=== PATIENT | female | born 1940 | race Caucasian/White ===

== ENCOUNTER 2019-02-01 12:04 | Day surgery (SDC) | payer MEDICARE, SELFPAY ==
[2019-01-24 12:59] VITALS: BMI 21.1
[2019-02-01 12:49] VITALS: BP 128/67; PULSE 67; RESP 16; TEMP 36.3; O2SAT 95; BMI 21.1
[2019-02-01] MEDS: LACTATED RINGERS 1,000 ML 42 ML IV (12:56)
[2019-02-01] MEDS: CEFAZOLIN 1 GM VIAL IV (13:14)
[2019-02-01] MEDS: LIDOCAINE 2% INJ SDV 5 ML INJ (13:25)
--- NOTE | 2019-02-01 13:32 | SUR.OPER ---
Supine on padded OR bed, head on pillow, arms secured on padded arm boards at <90 degrees abduction, legs uncrossed, safety belt at thigh, tape over blanket over lower legs.
[2019-02-01] MEDS: BUPIVACAINE 0.5% (PF) VIAL 30 ML INJ (14:07)
[2019-02-01 14:20] VITALS: BP 131/75; PULSE 87; RESP 16; TEMP 36.1; O2SAT 96
--- NOTE | 2019-02-01 14:22 | PM.OP.1 ---
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 Post-op diagnosis: same Procedure & Clinicians Procedure: 1st MTPJ implant arthroplasty with silicone implant, left foot Same procedure as scheduled: Yes Indications: Painful arthritis, 1st MTPJ, left foot Surgeon: Norbert Aguilera Anesthesia Type: Sedation and Local Operative Notes Closure Type: primary Specimen(s): none sent Prosthetic devices, grafts, tissues, transplants, or devices: Futura silicone hinged implant with titanium grommets x2 Estimated Blood Loss (mL): 5 Blood products transfused: none Procedure in detail: Indications: This patient has been fighting painful end- stage arthritis in her left great toe joint for sometime now. She has failed to improve with conservative treatment and desires at this point to proceed with surgical intervention. Joint fusion and joint replacement were discussed and she wanted to proceed with silicone joint implant arthroplasty. No guarantees were made or implied regarding surgical outcome. Preop diagnosis: Painful arthritis, 1st MTP joint, left foot Postop diagnosis: same Operation: The patient was taken from the day surgery area back to the OR via gurney, after having been given IV antibiotic prophylaxis. She was placed on the OR table in the supine position, sedation was administered by the anesthesiologist, followed by local anesthetic blockade using 50 50 lidocaine 10 cc total as a field block. The foot was then prepped and draped in usual sterile fashion from toes to knee. A calf tourniquet had been placed, however, it was not elevated nor utilized throughout the case. Procedure: 1St MTP joint silicone implant arthroplasty, left foot attention was directed toward the dorsum of the left foot. A longitudinal incision measuring approximately 7 cm was placed over the 1st MTP joint, just medial to the EHL tendon. Sharp and blunt dissection were carried down through the subcutaneous tissue layer, taking care to avoid neurovascular structures. The joint was carefully mobilized. Using the appropriate instrumentation, angled cuts were performed of the distal 1st metatarsal and proximal portion of the proximal phalanx using the guide. Those cuts were finished, taking care to maintain the plantar structures. At this point then, the canals of the metatarsal and proximal phalanx were prepared with the included instrumentation including small powered broach. Trial implant, the green size 20 was an excellent size and fit. Surgical site was then copiously irrigated with antibiotic solution. The appropriate titanium grommets were placed in the distal metatarsal and proximal phalanx. The actual clear silicone implant was then atraumatically placed into the arthroplasty site uneventfully. The joint was put through range of motion and there was found to be no excessive pistoning or any binding or catching. Wound was irrigated once more with antibiotic solution and closed in layers utilizing 3 0, 4 0, and 5 0 Vicryl respectively for the capsule, subcu, and skin. Steri-Strips were placed, a postop block of 0.5% Marcaine plain 10 cc administered. A light gauze compression bandage was then applied. Intraop fluoroscopy was then utilized to evaluate and confirm adequate placement and sizing of the implant. The patient tolerated the procedure and anesthesia well without any apparent complications. She left the OR with vital signs stable and digital perfusion intact. She will be allowed immediate weight-bearing protected in a postop shoe. She already has her 1st postop appointment set to see me in the office next week. Complications: none Condition: stable Disposition: same day surgery Plan for aftercare: Already has FU set with me next week. Immediate weightbearing allowed in post-op shoe. Already has pain meds dispensed.
[2019-02-01 14:45] VITALS: BP 143/75; PULSE 79; RESP 17; TEMP 36.8; O2SAT 97
== END 2019-02-01 15:00 | disposition home or self-care (01) ==
PROVIDERS: PCP Family Medicine; Visit Provider Podiatrist
PROC: (CPT 26535; principal; 2019-02-01 13:00)
DX: M19.079 Primary osteoarthritis, unspecified ankle and foot (principal); M06.00 Rheumatoid arthritis without rheumatoid factor, unspecified site; I51.9 Heart disease, unspecified
CPT/HCPCS: 28291; J0690; J2704; J3010